=== PATIENT | female | born 1980 | race Caucasian/White ===

== ENCOUNTER → 2017-05-21 | Outpatient (CLI) | payer OTHER ==
[~2017-05-21] MED LIST: ATV/1 PO; ESCI1TAB10 PO; GADAVIST IV PRN
--- NOTE | 2017-05-22 09:12 | DIAGNOSTIC IMAGING REPORT ---
MRI OF THE BRAIN WITHOUT AND WITH IV CONTRAST CLINICAL HISTORY: PONTINE GLIOMA COMPARISON STUDY: MRI of the brain December 19, 2015. TECHNIQUE: Utilizing a 1.5 Cassi magnet and dedicated coil, multiplanar, multiecho imaging of the brain was performed pre and postcontrast administration. IV administration of 6.5 mL of Gadavist contrast was uneventful. Thin cut imaging was performed through the brainstem. FINDINGS: There are no foci of restricted diffusion. No acute intracranial hemorrhage is present. Ventricular system is normal. Basilar cisterns are patent. There are no extra-axial fluid collections. The previously described expansile T2 hyperintense lesion within the brainstem is again noted. The mass effect and signal abnormality has definitively decreased since initial MRI of March 17, 2014 and have likely mildly diminished since previous study of December 19, 2015. No abnormal associated enhancement is present. No new foci of signal abnormality are identified within the brain parenchyma. Postsurgical changes within the right calvarium are noted from previous brain biopsy. Calvarial signal is otherwise normal. Orbits are unremarkable. Sinuses and mastoid air cells are unremarkable. IMPRESSION: 1. Interval decrease in signal abnormality and mass effect within the pontine lesion since MRI of December 19, 2015. No associated enhancement. Findings are consistent with interval improvement since earlier studies. 2. No acute intracranial findings. Electronically signed by: Onel Jarrell M.D. 05/22/2017 9:11 AM Dictated Date/Time: 05/21/2017 3:13 PM
== END | disposition home or self-care (01) ==
LOC: C.MRI 13:55
PROVIDERS: ATTEND Neurological Surgery
DX: C71.7 Malignant neoplasm of brain stem (principal)

== ENCOUNTER → 2017-11-10 | Outpatient (CLI) | payer OTHER ==
--- NOTE | 2017-11-10 15:02 | DIAGNOSTIC IMAGING REPORT ---
BRAIN COMBO CLINICAL HISTORY: 36 years-old Female presenting with PONTINE GLIOMA, 6 month follow-up, status post radiation. TECHNIQUE: Multisequence, multiplanar MR imaging of the brain was performed before and after the administration of intravenous contrast. IV contrast: 6 mL of Gadavist. COMPARISON: None. FINDINGS: Localizer images: Unremarkable. Ventricles and sulci normal in size. The site of the prior intra-axial mass in the faith remains near normal in its appearance. No evidence of effacement of the fourth ventricle or prepontine cistern. Only minimal FLAIR hyperintensity is evident in this region as seen on prior exam. No abnormal signal intensity within the brachium pontis or extending into the and midbrain or thalamus on the right. No mass effect or midline shift. No restricted diffusion to suggest acute ischemia. No hemorrhage. No extra-axial fluid collection. T2 skull base flow voids preserved. No abnormal parenchymal enhancement. Bone marrow signal intensity within the calvarium within normal limits. IMPRESSION: 1. Stable appearance of the faith with trace residual abnormal signal intensity. No evidence of recurrent mass lesion. No suspicious enhancement. No acute intracranial pathology. Electronically signed by: Bart Mchugh M.D. 11/10/2017 3:01 PM Dictated Date/Time: 11/10/2017 2:45 PM
== END | disposition home or self-care (01) ==
LOC: C.MRI 13:30
PROVIDERS: ATTEND Neurological Surgery
DX: C71.7 Malignant neoplasm of brain stem (principal)